=== PATIENT | female | born 1960 | race Caucasian/White ===

== ENCOUNTER → 2019-09-14 | Outpatient (CLI) | payer OTHER | LOC: GMA MATASK 17:41 | PROVIDERS: ATTEND Family Medicine | DX: Z00.00 Encounter for general adult medical examination without abnormal findings (principal) ==

== ENCOUNTER → 2020-02-19 | Outpatient (CLI) | payer OTHER | LOC: GMAM 14:39 | PROVIDERS: ATTEND Family Medicine | DX: E05.00 Thyrotoxicosis with diffuse goiter without thyrotoxic crisis or storm (principal) ==

== ENCOUNTER → 2020-04-25 | Outpatient (CLI) | payer OTHER ==
--- NOTE | 2020-04-26 11:25 | CT ---
EXAM DESCRIPTION: Orbits w/wo Contrast: Computed Tomography. CLINICAL HISTORY: VERTICAL STRABISMUS, RIGHT EYE COMPARISON: None. TECHNIQUE: Spiral -axial scans through the head and orbits at 2.5 x 2.5 mm intervals, without and with 75 mL Optiray 320 nonionic IV contrast. 2 mm sagittal and coronal reconstructions. No adverse reactions. Total Exam DLP: 700 mGy-cm. This exam was performed according to our departmental CT dose-optimization program which includes automated exposure control, adjustment of the mA and/or kV according to patient size and/or use of iterative reconstruction technique; to reduce radiation dose to as low as reasonably achievable (ALARA). FINDINGS: Bilateral orbits are well demonstrated. No abnormal enhancement in the orbital contents including the muscles, globes, and optic nerves. These structures are symmetric bilaterally. No distinct cysts, no dominant solid mass, no fluid collection, no large calcifications. Contrast is noted on the bilateral optic nerve arteries. There is mild divergence of the lenses at the time of examination. Orbital [place] are unremarkable. Normal bone density. No significant mucoperiosteal thickening in the sinuses. Bilateral ostiomeatal units are patent. Marlee bullosa in the left middle turbinate with posterior right septal deviation and right-sided spur. Anterior septum deviated to the left. Sphenoid nasal ostia are patent. Bilateral mastoid air cells are well aerated. Internal auditory structures are unremarkable bilaterally. No mass effect effacement or of the posterior nasopharynx or oral pharyngeal structures. The pituitary gland occupies less than 50% of the sella. Included brain showing No hemorrhage. No mass-effect and no midline shift. Normal contrast enhancement. No unusual vascularity in the [place]. Included venous structures are negative. IMPRESSION: 1. Bilateral orbits are unremarkable and symmetric with normal appearance of the orbital structures without and with IV contrast. Optic chiasm and optic nerve is not well seen but no mass effect.. 2. No acute paranasal sinus abnormalities. Chronic findings as described. 3. Small pituitary gland. Included brain structures normal pre and postcontrast. Electronically signed by: Rangel Terry MD 04/26/2020 11:23 AM [facility]
== END ==
LOC: CT 09:25
PROVIDERS: ATTEND Family Medicine
DX: Z01.812 Encounter for preprocedural laboratory examination (principal); H50.21 Vertical strabismus, right eye; E23.6 Other disorders of pituitary gland; J34.2 Deviated nasal septum; J34.89 Other specified disorders of nose and nasal sinuses